=== PATIENT | female | born 1960 | race Caucasian/White ===

== ENCOUNTER → 2020-02-21 | Outpatient (CLI) | payer OTHER ==
[~2020-02-21] MED LIST: ALBUTEROL HFA INH; ASPI-650 PO; CHOL10003 PO; DULO30CA2 PO; ESTR1TAB15 PO; LEVO175T5 PO; METO25TA35 PO; MULT-257 PO; POTASSIUM; PROG100C16 PO; TIOT18CA INH; VITA1TAB19 PO; ZOLP5TAB6 PO
== END | disposition home or self-care (01) ==
LOC: STAR 09:19
PROVIDERS: ATTEND Anesthesiology
DX: Z01.812 Encounter for preprocedural laboratory examination (principal); Z20.828 Contact with and (suspected) exposure to other viral communicable diseases
CPT/HCPCS: 36415; 87635

== ENCOUNTER 2020-02-25 07:28 | Day surgery (SDC) | payer OTHER ==
[~2020-02-25] VITALS: Ht 167.6 cm; Wt 150.0 kg
[~2020-02-25 07:28] MED LIST changes: -ALBUTEROL HFA INH; -ASPI-650 PO; -CHOL10003 PO; -DULO30CA2 PO; +EPINEPHRINE 1 MG/ML, 1ML ONE; -ESTR1TAB15 PO; -LEVO175T5 PO; +LIDOCAINE 1%, 20ML ONE; -METO25TA35 PO; -MULT-257 PO; -POTASSIUM; -PROG100C16 PO; -TIOT18CA INH; -VITA1TAB19 PO; -ZOLP5TAB6 PO
[2020-02-25 07:56] VITALS: BP 180/98
[2020-02-25] MEDS ORDERED: CHLORHEXIDINE 15 ML UDC MM STA (08:03)
[2020-02-25] MEDS ORDERED: LACTATED RINGERS 1,000 ML IV SCH (08:30)
[2020-02-25] MEDS ORDERED: TIOT18CA INH (08:46)
[2020-02-25] MEDS ORDERED: PROG100C16 PO (08:46)
[2020-02-25] MEDS ORDERED: ASPI-650 PO (08:46)
[2020-02-25] MEDS ORDERED: ESTR1TAB15 PO (08:46)
[2020-02-25] MEDS ORDERED: LEVO175T5 PO (08:46)
[2020-02-25] MEDS ORDERED: ALBUTEROL HFA INH (08:46)
[2020-02-25] MEDS ORDERED: DULO30CA2 PO (08:46)
[2020-02-25] MEDS ORDERED: METO25TA35 PO (08:46)
[2020-02-25] MEDS ORDERED: VITA1TAB19 PO (08:46)
[2020-02-25] MEDS ORDERED: CHOL10003 PO (08:46)
[2020-02-25] MEDS ORDERED: MULT-257 PO (08:47)
[2020-02-25] MEDS ORDERED: ZOLP5TAB6 PO (08:47)
[2020-02-25] MEDS ORDERED: POTASSIUM (08:47)
[2020-02-25 09:22] LABS: ALANINE AMINOTRANSFERASE 29 U/L (12-78); ALBUMIN 3.7 g/dL (3.4-5.0); ANION GAP 8 mmol/L (5-15); CALCIUM 9.3 mg/dL (8.5-10.1); CHLORIDE 102 mmol/L (98-107); CREATININE 1.01 mg/dL (0.55-1.02)
[2020-02-25] MEDS ORDERED: FENTANYL PF 100 MCG/2ML ONE ×2 (09:23→11:06)
[2020-02-25] MEDS ORDERED: MIDAZOLAM 1 MG/ML, 2ML ONE (09:23)
[2020-02-25 09:24] LABS: ALKALINE PHOSPHATASE 112 U/L (45-117); BILIRUBIN,TOTAL 0.3 mg/dL (0.2-1.0); TOTAL PROTEIN 7.9 g/dL (6.4-8.2)
[2020-02-25] MEDS ORDERED: CLINDAMYCIN 150 MG/ML, 6ML ONE (10:18)
[2020-02-25] MEDS ORDERED: ACETAMINOPHEN 325 MG TABLET PO PRN (10:30)
[2020-02-25] MEDS ORDERED: KETOROLAC 30 MG/1 ML IV PRN (10:30)
[2020-02-25] MEDS ORDERED: ALBUTEROL SULFATE 2.5 MG/3 ML NPPB PRN (10:30)
[2020-02-25] MEDS ORDERED: FENTANYL PF 100 MCG/2ML IV PRN (10:30)
[2020-02-25] MEDS ORDERED: hydrALAzine 20 MG/ML, 1ML IV PRN (10:30)
[2020-02-25] MEDS ORDERED: PROMETHAZINE 25 MG/ML, 1ML IV PRN (10:30)
[2020-02-25] MEDS ORDERED: MEPERIDINE/PF 25MG/0.5ML IVPush PRN (10:30)
[2020-02-25] MEDS ORDERED: LABETALOL 5MG/ML, 20ML IV PRN (10:30)
[2020-02-25] MEDS ORDERED: DIAZEPAM 5 MG/ML, 2ML IVPush PRN (10:30)
[2020-02-25] MEDS ORDERED: HYDROmorphone 2 MG/ML, 1ML IVPush PRN (10:30)
[2020-02-25] MEDS ORDERED: SUCCINYLCHOLINE 20 MG/ML, 10ML ONE (11:02)
[2020-02-25] MEDS ORDERED: CEFAZOLIN 1,000 MG ONE (11:02)
[2020-02-25] MEDS ORDERED: NEOSTIGMINE 1 MG/ML, 10ML ONE (11:02)
[2020-02-25] MEDS ORDERED: GLYCOPYRROLATE 0.2MG/1ML, 5ML ONE (11:02)
[2020-02-25] MEDS ORDERED: PROPOFOL 10 MG/ML, 20ML ONE (11:02)
[2020-02-25] MEDS ORDERED: ROCURONIUM 10MG/ML,5ML ONE (11:02)
[2020-02-25] MEDS ORDERED: ONDANSETRON 2MG/ML, 2ML ONE (11:02)
[2020-02-25] MEDS ORDERED: DEXAMETHASONE 4 MG/ML, 1ML ONE (11:02)
[2020-02-25] MEDS ORDERED: OXYcodone 5 MG/5 ML ORAL.SOL UDC ONE (11:06)
[2020-02-25] MEDS: OXYcodone 5 MG/5 ML ORAL.SOL UDC PO PRN ×2 (11:11→12:26)
== END 2020-02-25 14:07 | disposition home or self-care (01) ==
LOC: OUT 07:28
PROVIDERS: ATTEND Otolaryngology
DX: K14.8 Other diseases of tongue (principal); K14.0 Glossitis; I10 Essential (primary) hypertension; E89.0 Postprocedural hypothyroidism; E66.01 Morbid (severe) obesity due to excess calories; Z68.43 Body mass index [BMI] 50.0-59.9, adult; Z79.890 Hormone replacement therapy; Z79.891 Long term (current) use of opiate analgesic; Z79.899 Other long term (current) drug therapy; Z88.0 Allergy status to penicillin; Z88.2 Allergy status to sulfonamides; Z98.890 Other specified postprocedural states; Z83.3 Family history of diabetes mellitus; Z82.49 Family history of ischemic heart disease and other diseases of the circulatory system; Z80.9 Family history of malignant neoplasm, unspecified
CPT/HCPCS: 36415; 41112; 80053; 88305; J0171; J0330; J0690; J1100; J2250; J2405; J2704; J3010; J7120; J2710